=== PATIENT | male | born 1955 | race Caucasian/White ===

== ENCOUNTER 2023-05-20 09:16 | Emergency (ER) | payer MEDICARE, OTHER ==
[2023-05-20] MEDS ORDERED: Lidocaine 1% 20 ML MDV INFILT ONE (09:17)
[2023-05-20 10:27] VITALS: BP 138/82; PULSE 72
== END 2023-05-20 10:20 | disposition home or self-care (01) ==
LOC: FB.ED 09:16
DX: S61.512A Laceration without foreign body of left wrist, initial encounter (principal); Z88.0 Allergy status to penicillin; Z79.899 Other long term (current) drug therapy; Z79.01 Long term (current) use of anticoagulants; W26.8XXA Contact with other sharp object(s), not elsewhere classified, initial encounter
CPT/HCPCS: 12004; 99282